=== PATIENT | male | born 1965 | race Caucasian/White ===

== ENCOUNTER 2024-05-12 15:10 | Emergency (ER) | payer OTHER, SELFPAY ==
--- NOTE | ~2024-05-12 | CT_ITS ---
CLINICAL HISTORY: right eye deviation CT angiography head with contrast (with noncontrast head CT). With MIP MPR Postprocessing. Comparison: None available Findings: No acute intracranial hemorrhage. No midline shift or hydrocephalus. Weller matter-white matter differentiation is adequate and with question mild white matter pathology. Mild volume loss is generalized and greater than expected for age. Mucosal thickening paranasal sinuses with near-complete opacification of the remodeled left maxillary sinus. Previous paranasal sinus procedure changes suggested. Imaged mastoid air cells are well aerated. No acute skull fracture. No opacified proximal intracranial arterial aneurysm to account for the reported ocular abnormality. Least mild bilateral myopia with bilateral esotropia at the time of the imaging. Left-sided periorbital soft tissue swelling suggested. No ICA or M1 occlusion. Calcifications include bilateral carotid siphons. Anterior communicating artery is patent. Proximal ACAs and proximal MCAs are otherwise unremarkable technique. The left vertebral artery is dominant. Right vertebral terminates in the right PICA. The basilar artery is patent without stenosis. Proximal photo specialist are unremarkable for technique and venous contamination. IMPRESSION: 1. No ICA or M1 occlusion. 2. The basilar artery is patent. 3. Esotropia and myopia of the imaged orbits. This document has been electronically signed by: Casimiro Costello MD on 05/12/2024 20:57:15
[2024-05-12 15:45] VITALS: BP 157/84; PULSE 92; RESP 18; TEMP 36.3; O2SAT 97; BMI 46.0
--- NOTE | 2024-05-12 16:06 | ECG_ITS ---
Test Reason : PAIN Blood Pressure : */* mmHG Vent. Rate : 87 BPM Atrial Rate : 87 BPM P-R Int : 180 ms QRS Dur : 94 ms QT Int : 354 ms P-R-T Axes : 2 18 2 degrees QTcB Int : 425 ms Normal sinus rhythm with sinus arrhythmia Normal ECG When compared with ECG of 18-Oct-2017 20:08, No significant change was found Referred By: Barry Wagner Electronically Signed By: ARLENE BROOKE MD
--- NOTE | 2024-05-12 16:06 | ED.GENADULT ---
HPI - General Adult General Chief complaint: Eye Problems Stated complaint: Right eye pain/turning inward sent from office Time Seen by Provider: 05/12/24 19:47 Source: patient, RN notes reviewed and old records reviewed Mode of arrival: ambulatory History of Present Illness ED Provider: Erin Corrales PA-C HPI narrative: 59-year-old male with a past medical history of HTN, obesity, presenting to ED with complaints of right eye deviation and blurry vision x10 days. Admits noted his vision was off 10 days ago, was evaluated at urgent care and prescribed antibiotics, states symptoms worsened and was evaluated by creative services coordinator today who recommended patient follow-up with PCP for brain MRI to rule out CVA, due to concerns of CN 6 palsy. Patient reports double slash blurry vision. Denies other complaints including headache, vision loss, head trauma, neck/back pain, CP/SOB, numbness, tingling, weakness, speech difficulty. Denies anticoagulation use. Related Data Allergies Allergy/AdvReac Type Severity Reaction Status Date / Time No Known Allergies Allergy Verified 05/12/24 15:50 [No Known Allergies*] Review of Systems Review of Systems: Yes all other systems are reviewed and are negative Constitutional: Constitutional: Reports as per HPI Neurologic: Denies Abnormal speech present PMFSH Past Medical History Attestation statement: The following information was validated with the patient. Source: old records reviewed Social History Social History Advance Directives: No Advance Directives Information Provided: No Do you have a plan to hurt others: No Plan Physical Exam ED Vital Signs: Vital Signs - 24 hr 05/12/24 15:45 05/12/24 20:28 Temperature 97.4 F 98.5 F Pulse Rate 92 78 Respiratory Rate 18 20 Blood Pressure 157/84 H 129/72 Pulse Oximetry 97 96 Oxygen Delivery Method Room Air Room Air BMI result Body Mass Index 46.0 Const General: cooperative, healthy appearing and no acute distress Orientation/consciousness: patient oriented x3 Limitations: no limitations HENMT Head: Yes normal to inspection and Yes atraumatic Ears: hearing grossly normal bilaterally General nose exam: Normal external nose present Face and sinus: Yes normal facial exam Mouth: Normal oral and palatal mucosa present and no drooling Throat: Yes posterior oropharynx normal, Yes uvula midline, No peritonsillar mass and No uvula laterally displaced Eyes Other: + medial deviation of right eye General: appearance normal, both eyes and all related structures Alignment and Position: alignment normal Eyelids: Yes eyelids normal Conjunctivae: conjunctivae normal Pupils: Equal, round and reactive pupils present EOM: EOMs intact bilaterally Direct Ophthalmoscopy: normal light reflex and no photophobia Neck Neck: Yes normal visual inspection and Yes no meningeal signs Resp Effort & Inspection: normal respiratory effort and no respiratory distress Cardio Rate: regular rate Heart sounds: S1 normal heart sound present and S2 normal heart sound present GI Inspection: Yes normal to inspection Palpation (GI): Soft to palpation, nontender, no guarding and not rigid Skin Rashes: no rashes Wounds: no wounds Neuro General: patient oriented x3, gait normal, tone normal, moves all extremities, no meningeal signs, no focal motor deficits and CN's II-XI intact bilaterally Cranial nerves: Yes CN's II-XII intact bilaterally and Yes Equal, round and reactive pupils present Cognition (Neuro): normal cognition Speech: No Abnormal speech present Gait exam (Neuro): Normal gait present Motor exam (neuro): 5/5 motor strength present throughout and no tremor noted Extrem General: Yes normal to inspection Course Course Course Narrative: RME, this is a rapid medical exam performed by [place] Wagner please refer to primary provider for complete H&P- 59-year-old male with past medical history significant for hypertension and obesity presents for evaluation of right eye deviation. He reports he started to have minor visual changes 10 days ago and was seen at urgent care. He was diagnosed with sinusitis. He now has medial deviation of the right eye. He complains of double vision.. His symptoms have been progressively worsening over the last 10 days. He saw his creative services coordinator today who recommended he come to the ER for ?MRI of the brain and orbits. ? The patient has no other signs or symptoms and no other objective findings with the exception of the medial deviation of the right eye. Plan for labs, we will discuss with Neurology -2110--labs reassuring CT angio head IMPRESSION: 1. No ICA or M1 occlusion. 2. The basilar artery is patent. 3. Esotropia and myopia of the imaged orbits. > recommended close follow-up with PCP for further imaging including MRI and carotid ultrasound. Should also follow up again with ophthalmology - Results discussed with patient including worrisome signs and symptoms and strict return precautions, and when to return to the emergency department. They verbalized understanding and feel safe for discharge at this time. Reevaluation(s) Reevaluation #1: Discussed with Dr. Cash, he recommends CT angiography of the brain only to evaluate for aneurysm. He states there is no immediate indication for MRI of the brain, CT angiography of the neck. CT angiography of the brain was ordered Time: 17:03 Medications Administered Discontinued Medications Generic Name Dose Route Start Last Admin Trade Name Miguel PRN Reason Stop Dose Admin Iohexol 100 ml 05/12/24 20:16 05/12/24 20:16 Iohexol 350 Mg/Ml 100 Ml Infus..Btl IV 05/12/24 20:17 70 ml ONCE ONE Administration Medical Decision Making Medical Decision Making MDM Narrative: 59-year-old male with a past medical history of HTN, obesity, presenting to ED with complaints of right eye deviation and blurry vision x 10 days. On exam vital signs stable, NAD, nontoxic appearing, exam notable for rightward deviation of eye (Esotropia), no other focal neuro deficits. Ambulating with steady gait. Concern for subacute CVA vs cranial nerve palsy vs aneurysm or mass. Low suspicion for Espino's palsy, trauma, ICH or TIA. No evidence of globe rupture or acute infectious process. TNK not indicated Case was discussed with Neurology by MATT Boyle ([facility] provider) who recommended CT angiography of the brain only. Plan: Labs, VA, CTA brain Please refer to course for remaining clinical decision making, interpretation of labs/imaging results, and discussions with consultants and/or family members. Differential Diagnosis Differential Diagnoses: The differential diagnosis associated with the presentation includes As above Admission/Observation Consideration of admission/observation: Escalation of care including admission/observation considered Consult Healthcare Provider Management of the patient was discussed with: Surgical Supply Assistant (neurology) Lab Data [facility] Lab Attestation statement: I reviewed the patient's lab results. 05/12/24 16:14 05/12/24 16:14 Labs: Lab Results 05/12/24 Range/Units 16:14 WBC 9.2 (4.8-10.8) X10*3/uL RBC 5.05 (4.60-5.80) X10*6/uL Hgb 15.1 (14.0-18.0) g/dl Hct 42.0 (42.0-52.0) % MCV 83.2 (80.0-98.0) fL MCH 29.9 (27.0-33.0) pg MCHC 36.0 (31.0-36.0) g/dl RDW 13.2 (11.0-16.0) % Plt Count 215 (160-400) X10*3/uL MPV 8.3 L (9.4-12.4) fL Immature Gran % (Auto) 0.2 (0.0-0.4) % Neut % (Auto) 58.0 (45-73) % Lymph % (Auto) 31.4 (20-40) % [place] % (Auto) 8.9 (2-11) % Eos % (Auto) 1.1 (0-4) % Baso % (Auto) 0.4 (0-2) % Lymph # (Auto) 2.9 (1.2-4.9) X10*3/uL [place] # (Auto) 0.8 (0.1-1.2) X10*3/uL Eos # (Auto) 0.1 (0.0-0.4) X10*3/uL Baso # (Auto) 0.0 (0.0-0.2) X10*3/uL Abs Immat Gran (auto) 0.02 (0.00-0.03) X10*3/uL Absolute Neuts (auto) 5.3 (2.0-8.3) x10*3/uL Absolute Nucleated RBC 0.000 (0.0-0.012) X10*3/uL Nucleated RBC % (auto) 0.0 (0.0-0.2) /100WBC PT 13.9 H (10.9-12.4) SEC INR 1.2 H (0.9-1.1) Sodium 141 (135-145) mmol/L Potassium 3.6 (3.3-5.1) mmol/L Chloride 108 (96-108) mmol/L Carbon Dioxide 28 (22-29) mmol/L Anion Gap 9 L (12-20) BUN 13 (9-16) mg/dL Creatinine 0.92 (0.5-1.4) mg/dL Estim Creat Clear Calc 112.7 Estimated GFR > 60 Random Glucose 107 (60-115) mg/dL Calcium 9.5 (8.4-10.2) mg/dL Magnesium 2.1 (1.6-2.6) mg/dL Total Bilirubin 1.2 H (0.0-1.0) mg/dL AST 50 H (5-37) U/L ALT 90 H (0-40) U/L Alkaline Phosphatase 59 (39-117) U/L Total Protein 7.6 (6.5-8.0) g/dL Albumin 4.4 (3.5-5.0) g/dL Lipase 14 (8-78) U/L Radiology Impression Discussion of test interpretation with radiology: I have reviewed the radiologist's reading. External Record Review External record reviewed: Inpatient record, Office record, Outpatient record, Prior outpatient labs, Prior outpatient radiology, Primary care record and Outside ED record Tests considered The following testing was considered but not selected: As above Prescription Management I considered prescription management with: Other Chronic Conditions Patient?s care impacted by: Hypertension Social Determinants Patient?s care significantly limited by Social Determinants of Health including: Other Social Determinant of Health Discharge Plan Discharge Clinical Impression: Esotropia of right eye, Myopia Patient Disposition: Home, Self-Care Instructions: Strabismus in Adults (ED) Additional Instructions: Your CT scan shows esotropia and myopia of your orbits Your blood work is otherwise reassuring You need to follow-up with your primary care doctor, Ophthalmology, and Neurology. If her symptoms persist or worsen, you develop weakness, headache, vision change or loss return to the emergency department immediately Call tomorrow to make an appointment Dr. Harjit Lawrence MD [phone] [place] [address], [phone] Referrals: [facility] [Provider Group] Ganga Carroll III, MD [Primary Care Provider] - Print Language: Palestinian
[2024-05-12 16:18] LABS: MANUAL DIFF FLAG NO
[2024-05-12 16:19] LABS: Basophils Percent Auto 0.4 % (0-2); Eosinophils Absolute Auto 0.1 X10*3/uL (0.0-0.4); Eosinophils Percent Auto 1.1 % (0-4); Hemoglobin 15.1 g/dl (14.0-18.0); Imm Gran Abs Auto 0.02 X10*3/uL (0.00-0.03); Imm Gran Pct Auto 0.2 % (0.0-0.4); Lymphocytes Absolute Auto 2.9 X10*3/uL (1.2-4.9); Lymphocytes Percent Auto 31.4 % (20-40); Mean Corpuscular Hemoglobin 29.9 pg (27.0-33.0); Mean Corpuscular Volume 83.2 fL (80.0-98.0); Mean Platelet Volume 8.3 fL (9.4-12.4); Monocytes Absolute Auto 0.8 X10*3/uL (0.1-1.2); Monocytes Percent Auto 8.9 % (2-11); Neutrophils Absolute Auto 5.3 x10*3/uL (2.0-8.3); Platelet Count 215 X10*3/uL (160-400); Red Blood Count 5.05 X10*6/uL (4.60-5.80); Red Cell Distribution Width 13.2 % (11.0-16.0); White Blood Count 9.2 X10*3/uL (4.8-10.8)
[2024-05-12 16:27] LABS: INTERNATIONAL NORM RATIO 1.2 (0.9-1.1); Prothrombin Time 13.9 SEC (10.9-12.4)
[2024-05-12 16:38] LABS: Alanine Aminotransferase 90 U/L (0-40); Albumin Level 4.4 g/dL (3.5-5.0); Alkaline Phosphatase 59 U/L (39-117); Anion Gap 9 (12-20); Aspartate Amino Transferase 50 U/L (5-37); Bilirubin Total 1.2 mg/dL (0.0-1.0); Blood Urea Nitrogen 13 mg/dL (9-16); Calcium 9.5 mg/dL (8.4-10.2); Carbon Dioxide 28 mmol/L (22-29); Chloride 108 mmol/L (96-108); Creatinine Clr Calc Pharmacy 112.7; Estimated Glomerular Filt Rate > 60; Glucose Random 107 mg/dL (60-115); Lipase 14 U/L (8-78); Potassium 3.6 mmol/L (3.3-5.1); Sodium 141 mmol/L (135-145); Total Protein 7.6 g/dL (6.5-8.0)
--- OUTSIDE RECORDS SUMMARY | 2024-05-12 20:00 | XMS_ITS | Continuity of Care Document ---
Author Organization [place] - [facility], [facility] Address [address] [place] [address] Care Team Providers Care Robotics Systems Engineer Name Role Phone CHENCHO GILES Primary Care Provider Assessment No assessment recorded. Plan of Treatment Reminders Order Date Submit Date Provider Last Modified By Organization Details Last Modified Time Details Appointments None recorded. Lab None recorded. Referral None recorded. Procedures None recorded. Surgeries None recorded. Imaging CT, maxillofaci al, w/wo contrast - diplopia and ?fungal sinusitis with contrast 2024 025 [facility], [address] , [facility] [address], [place], [address], 5 09:15:21 Medication Orders Ciprodex 0.3 %-0.1 % ear drops,suspe nsion 2024 025 [facility], [address] [place] [address], [id number], 5 15:44:39 amoxicillin 875 mg-potassiu m clavulanate 125 mg tablet 2024 025 [facility], [address] [place] [address], [id number], 5 15:44:40 Patient TargetsNo targets recorded. Patient Instructions Encounter Date Encounter Id Patient Instructions Last Modified By Organization Details Last Modified Time 05/10/2024 [id number] Patient with history of sleep apnea, nasal polyps allergic rhinitis who had recent ear infection. He is also noted some pressure behind his eyes and some difficulty with his vision. There is some relative exophthalmos left compared to right with a little bit of ptosis of the right eye. Endoscopically I see some polypoid degeneration of the left ethmoid cavity and some purulent discharge in the left maxillary sinus. I did not see any polyps in the sphenoid recess. At this point he also has a right ear infection with granulation tissue. I have suggested topical drops for the ear, oral antibiotics for the sinusitis and consistent use of fluticasone nasal spray. He will see ophthalmology in 2 days and I will put an order in for a CT scan of the sinuses with contrast hong Not available 05/10/2024 15:42:53 Reason for Referral None Reported. Problems Name Problem SNOMED Code Status Onset Date Resolution Date Notes Provider Name and Address Organization Details Recorded Time Chronic rhinitis 93222694 Active 2015 Chronic rhinitis; Note: Date Diagnosed : 12/07/2015 10:33 AM (J31.0) Not Available [facility] 4 02:31:31 Deviated nasal septum 033587536 Active 2015 Nasal septal deviation ; CMS Risk: moderate risk Dev iated nasal septum; Note: Date Diagnosed : 06/19/2015 11:20 AM (J34.2) ; Start Date : 6 Not Available [facility] 4 02:31:38 Postopera tive follow-up visit Active 2015 Post op; Note: Date Diagnosed : 07/23/2015 10:37 AM (V67.00) Not Available [facility] 4 02:31:47 Chronic sinusitis 22097192 Active 2015 Chronic sinusitis ; Note: Date Diagnosed : 07/23/2015 10:37 AM (473.9) Sinusit is (chronic) involving more than one sinus but not pansinusi tis; Note: Date Diagnosed : 06/19/2015 11:56 AM (J32.8) ; Start Date : 6 Not Available [facility] 4 02:31:30 Chronic maxillary sinusitis 79243582 Active 2015 Chronic maxillary sinusitis ; Note: Date Diagnosed : 08/01/2015 4:54 PM (J32.0) Not Available [facility] 4 02:31:46 Dyspnea 724924884 Active 2015 Shortness of breath; Note: Date Diagnosed : 12/07/2015 10:33 AM (R06.02) Not Available [facility] 4 02:31:28 Allergic rhinitis 69001291 Active 2015 Other allergic rhinitis; Note: Date Diagnosed : 08/29/2015 4:01 PM (J30.89) Not Available [facility] 4 02:31:30 Obstructi ve sleep apnea syndrome 40725098 Active 2019 Obstructi ve sleep apnea (adult) (pediatri c); Note: Date Diagnosed : 05/13/2019 3:33 PM (G47.33) Not Available [facility] 4 02:31:40 Superfici al mycosis 138027558 Active 2015 Other specified superfici al mycoses; Note: Date Diagnosed : 08/01/2015 4:55 PM (B36.8) Not Available [facility] 4 02:31:37 Nasal congestio n 99136609 Active 2019 Nasal congestio n; Note: Date Diagnosed : 05/13/2019 3:33 PM (R09.81) Not Available [facility] 4 02:31:26 Acute serous otitis media of bilateral ears 12052561027 58247 Active 2019 Acute serous otitis media, bilateral ; Note: Date Diagnosed : 05/13/2019 3:38 PM (H65.03) Not Available [facility] 4 02:31:35 Hypertrop hy of nasal turbinate s 23444715 Active 2015 Nasal turbinate hypertrop hy; Location: bilateral CMS Risk: low risk Hyp ertrophy of nasal turbinate s; Note: Date Diagnosed : 07/19/2015 1:25 PM (J34.3) ; Start Date : 6 Not Available [facility] 4 02:31:28 Polyp of nasal cavity 115502823 Active 2015 Polyp of nasal cavity; Note: Date Diagnosed : 06/19/2015 11:20 AM (J33.0) Not Available [facility] 4 02:31:44 Acute suppurati ve otitis media 133191259 Active 2024 CLAUDE HERNÁNDEZ MD [address] [facility],[place] [address], [place], [address] , [facility] 5 15:44:05 Diplopia 15275060 Active 2024 CLAUDE HERNÁNDEZ MD [address] [facility],[place] [address], [facility] [place], [address] , [facility] 5 15:46:03 Problem Notes None recorded. Procedures Surgical History Date Name Laterality Status Provider Name and Address Organization Details Recorded Time JMSNasal/Sinus Endoscopy-PRIOR surgical cavities completed CLAUDE LOUIS MD [address] [place] [address],[place] [address], [place], [address], [facility] 05/10/2024 15:41:25 functional endoscopic sinus surgery completed CLAUDE LOUIS MD [address] [place] [address],[place] [address], [place], [address], [facility] 05/10/2024 15:35:13 Imaging Results None recorded. Procedure Notes None recorded. Medical Equipment None Reported. Medications Name Sig Start Date Stop Date Status Note LastModified by Organization Details LastModified Time losartan 50 mg tablet TAKE 1 TABLET BY MOUTH ONCE DAILY active Not Available Not Available No t Available dicloxaci llin 500 mg capsule 1 capsule by mouth 2015 active Medicati on ID: [id number] D uration Value: 10 Prescri bed By Name: JOSEPHINE Arauz nd Name: dicloxac illin Se nd Method: E-Prescr ibed Sub s Allowed: subs OK Medic ationGen ericName : dicloxac illin Not Available Not Available Not Available atorvasta tin 10 mg tablet TAKE 1 TABLET BY MOUTH ONCE DAILY active Not Available Not Available No t Available hydrocodo ne 5 mg-acetam inophen 325 mg tablet 1 tablet by mouth 2015 active Medicati on ID: [id number] D uration Value: 5 Prescri bed By Name: Reg Sorenson nd Name: hydrocod one-acet aminophe n Send Method: E-Prescr ibed Sub s Allowed: subs OK Medic ationGen ericName : hydrocod one-acet aminophe n Not Available Not Available Not Available prednison e 20 mg tablet 2019 active Medicati on ID: [id number] P rescribe d By Name: Reg Sorenson nd Name: predniso ne Send Method: E-Prescr ibed Sub s Allowed: subs OK Speci al Instruct ion: Take 3 tabs daily for 3 days then 2 tabs daily for 3 days then 1 tabs daily for 3 days then stop Med icationG enericNa me: predniso ne Not Available Not Available Not Available amlodipin e 10 mg tablet TAKE 1 TABLET BY MOUTH ONCE DAILY active Not Available Not Available No t Available doxycycli ne monohydra te 100 mg capsule 1 capsule by mouth twice a day 2019 active Medicati on ID: [id number] D uration Value: 10 Prescri bed By Name: Reg Sorenson nd Name: doxycycl ine monohydr ate Send Method: E-Prescr ibed Sub s Allowed: subs OK Medic ationGen ericName : doxycycl ine monohydr ate Not Available Not Available Not Available Ponaris nasal solution 1 ml into both nostrils 2015 active Medicati on ID: [id number] D uration Value: 30 Prescri bed By Name: Reg Sorenson nd Name: Ponaris Send Method: E-Prescr ibed Sub s Allowed: subs OK Speci al Instruct ion: use 1/2 dropper in each nostril BID... M edicatio nGeneric Name: Ponaris Not Available Not Available Not Available lisinopri l 10 mg tablet active Medicati on ID: [id number] D uration Value: 30 Brand Name: lisinopr il Send Method: E-Prescr ibed Sub s Allowed: subs OK Medic ationGen ericName : lisinopr il Not Available Not Available Not Available hydrochlo rothiazid e 25 mg tablet 05/13 completed Medicati on ID: [id number] D uration Value: 30 Brand Name: hydrochl orothiaz adam Send Method: E-Prescr ibed Sub s Allowed: subs OK Medic ationGen ericName : hydrochl orothiaz aadm Not Available Not Available Not Available diclofena c sodium 50 mg tablet,de layed release TAKE 1 TABLET BY MOUTH TWICE DAILY NEEDED FOR PAIN active Not Available Not Available No t Available fluticaso ne propionat e 50 mcg/actua tion nasal spray,lito pension 2 spray into both nostrils 2016 active Medicati on ID: [id number] D uration Value: 30 Prescri bed By Name: Reg Sorenson nd Name: fluticas one Send Method: E-Prescr ibed Sub s Allowed: subs OK Medic ationGen ericName : fluticas one Not Available Not Available Not Available amoxicill in 875 mg-potass ium clavulana te 125 mg tablet Take 1 tablet every 12 hours by oral route. 2024 active Not Available Not Available Not Avai lable cyclobenz aprine 5 mg tablet TAKE 1 TABLET BY MOUTH AT BEDTIME NEEDED FOR MUSCLE SPASM active Not Available Not Available No t Available Fish Oil 120 mg-180 mg capsule 2015 active Medicati on ID: [id number] B rand Name: Fish Oil Send Method: E-Prescr ibed Sub s Allowed: subs OK Medic ationGen ericName : Fish Oil Not Available Not Available Not Available Ciprodex 0.3 %-0.1 % ear drops,lito pension INSTILL 4 DROPS INTO AFFECTED EAR(S) BY OTIC ROUTE 2 TIMES PER DAY FOR 7 DAYS 2024 active Not Available Not Available Not Avai lable omeprazol e 20 mg tablet,de layed release 2015 active Medicati on ID: [id number] B rand Name: omeprazo le Send Method: E-Prescr ibed Sub s Allowed: subs OK Speci al Instruct ion: Take 1 tablet by mouth every day before breakfas t Medica tionGene ricName: omeprazo le Not Available Not Available Not Available cholecalc iferol (vitamin D3) 125 mcg/mL (5,000 unit/mL) oral drops 2017 active Medicati on ID: [id number] B rand Name: cholecal ciferol (vitamin D3) Send Method: E-Prescr ibed Sub s Allowed: subs OK Medic ationGen ericName : cholecal ciferol (vitamin D3) Not Available Not Available Not Available EpiPen 2-Sathish 0.3 mg/0.3 mL injection , auto-inje ctor 1 pen injector intramus cularly 2015 active Medicati on ID: [id number] D uration Value: 180 Prescri bed By Name: Claude hopkins M.D. Bra nd Name: EpiPen 2-Sathish Se nd Method: E-Prescr ibed Sub s Allowed: subs OK Medic ationGen ericName : EpiPen 2-Sathish Not Available Not Available Not Available Vitals Date Recorded Body height Body mass index (BMI) Body weight Provider Name and Address Organization Details Last Updated DateTime 05/10/2024 167.64 cm 46.3 kg/m2 989175.01 g Gabriel Gonzalez [place] - [facility] 05/10/2024 15:22:23 Social History None recorded. Functional Status None recorded. Mental Status None recorded. Family History Nothing Reported. Medical History Condition Response Nasal or Sinus Problems Y Allergies/Hayfever Y High Cholesterol Y Sleep Disorder Y Hypertension Y Nasal polyps Y Past Encounters Encounter ID Performer Location Encounter Start Date Encounter Closed Date Diagnosis/Indication Diagnosis SNOMED-CT Code Diagnosis ICD10 Code Diagnosis Note [id number] CLAUDE HERNÁNDEZ MD [facility] [address] [address] 05/10/2024 15:05:27 05/10/2024 15:47:24 Chronic sinusitis 12590869 J32.9 Acute supp urative otitis media 013314611 H66.009 Diplopia 02704599 H53.2 Health Concerns Section Related Observation LastModified by Organization Detai ls LastModified Time None Recorded Concern Status LastModified by Organization Details LastModified Time None Recorded Payers Encounter Date Sequence Insurance Name Policy Number Policy Carr Covered Member ID Carr Member ID Guarantor Name 05/10/2024 1 [facility] PLAN (MEDICAID HMO) [id number] Delfin Stratton [id number] Delfin Stratton Notes Date Note Type Note Provider Name and Address Organization Details Recorded Time 05/10/2024 text/html Patient with history of allergy, nasal polyps and obstructive sleep apnea. He underwent endoscopic surgery in 2016. Has not been seen for at least 4 years. Is been doing Flonase and has been doing reasonably well. He notes recently he had some blockage and a sensation of discharge from the right ear. Last week he noticed some double vision in primary and upward gaze. He is scheduled for ophthalmology evaluation later this week. He continues on CPAP. He notes some pressure in his head and pain behind left eye CLAUDE LOUIS MD [address] [place] [address], [place], [address], [facility] - [facility] 05/10/2024 15:46:19
[2024-05-12 20:14] LABS: Magnesium 2.1 mg/dL (1.6-2.6)
[2024-05-12] MEDS: iohexoL 350 MG/ML 100 ML INFUS..BTL IV (20:16)
[2024-05-12 20:28] VITALS: BP 129/72; PULSE 78; RESP 20; TEMP 36.9; O2SAT 96
[2024-05-12 21:51] LABS: TSH reflex Free T4 0.61 uIU/mL (0.32-4.0)
[2024-05-12 23:04] VITALS: BP 129/72; PULSE 78; RESP 20; TEMP 36.9; O2SAT 96
== END 2024-05-12 23:04 | disposition home or self-care (01) ==
PROVIDERS: Physician Assistant; Emergency Provider Emergency Medicine Emergency Medical Services; PCP Internal Medicine
DX: H50.00 Unspecified esotropia (principal); H52.11 Myopia, right eye; H53.8 Other visual disturbances
CPT/HCPCS: 36415; 70496; 80053; 83690; 83735; 84443; 85025; 85610; 93005; 99284; Q9967

== ENCOUNTER → 2024-05-12 16:06 | Outpatient (BNV) | payer OTHER, SELFPAY | PROVIDERS: Emergency Provider Emergency Medicine Emergency Medical Services; PCP Internal Medicine; Visit Provider Internal Medicine Cardiovascular Disease | DX: H57.11 Ocular pain, right eye (principal) | CPT/HCPCS: 93010 ==

== ENCOUNTER → 2024-05-12 16:58 | Outpatient (BNV) | payer OTHER, SELFPAY | PROVIDERS: Emergency Provider Emergency Medicine Emergency Medical Services; PCP Internal Medicine; Visit Provider Radiology Neuroradiology | DX: H50.00 Unspecified esotropia (principal); H52.10 Myopia, unspecified eye | CPT/HCPCS: 70496 ==

== ENCOUNTER 2025-01-15 14:43 | Emergency (ER) | payer OTHER, SELFPAY ==
--- NOTE | 2025-01-15 15:04 | ED.EYEPROB ---
HPI - Eye Problem General Chief complaint: Eye Problems Stated complaint: blurred vision? referred to [facility] Time Seen by Provider: 01/15/25 17:44 Source: patient Mode of arrival: ambulatory Limitations: no limitations History of Present Illness ED Provider: ALEX PIZARRO PA-C HPI Narrative: 59-year-old male with past medical history significant for hypertension presents to the ED today for evaluation of increased floaters to right eye since yesterday. Patient states he was working on his girlfriend's car, went to sit down to talk to her and noticed increased floaters to his right eye. He states this was at approximately 2:00 p.m. yesterday. He reports floaters to bilateral eyes at baseline however they were more prominent to his right eye yesterday. States the floaters move into the center and cause him to have blurred vision in his right eye. These are becoming more frequent. He denies any associated symptoms including headache, jaw claudication, vision loss, eye pain. He wears glasses, does not wear contacts. He does not believe he got anything into his eye while working on the car as he was standing above the car, looking down. He regularly follows with his neuroophthalmologist in [place] due to history of left eye palsy which has since resolved. Reports following up with him in August of this year (6 mo ago) with eye exam at his baseline. Related Data Allergies Allergy/AdvReac Type Severity Reaction Status Date / Time No Known Allergies (No Known Allergy Verified 01/15/25 15:08 Allergies*) Review of Systems Review of Systems: Yes all other systems are reviewed and are negative PMFSH Past Medical History Attestation statement: The following information was validated with the patient. Source: old records reviewed and nursing notes reviewed Social History Social History Smoked in Last 30 Days: No Use of substances other than those prescribed or required for medical reasons: No Advance Directives: No Advance Directives Information Provided: No Do you have a plan to hurt others: No Plan Physical Exam Vital Signs: Vital Signs: Last Vital Signs Temp 98.4 F 01/15/25 19:10 Pulse 83 01/15/25 19:10 Resp 16 01/15/25 19:10 BP 147/78 H 01/15/25 19:10 Pulse Ox 96 01/15/25 19:10 O2 Del Method Room Air 01/15/25 19:10 BMI result Body Mass Index 47.5 hypertensive, vitals are otherwise wnl General: Well appearing, in no acute distress. Skin: Warm, dry, intact. No rashes or lesions. Head: Normocephalic, atraumatic. EENT: Hearing is intact b/l. Moist mucous membranes.?No periorbital swelling. No enophthalmous or exopthalmous. EOMs intact without pain or entrapment. PERRLA. No photophobia. No obvious foreign body or abrasion. No conjunctival injection or chemosis. No hazy cornea. Visual acuity 20/100 bilaterally, uncorrected. 20/30 bilaterally corrected. IOP OD 19, IOP OS 20. No FB noted on eyelid eversion. On tetracaine exam, no reuptake to suggest abrasion or fb. No ulceration. No dendritic lesions. Neck: Supple without LAD Cardiac: Chest wall symmetric. RRR Lungs: Normal respiratory effort without accessory muscle use. CTA bilaterally. Back: No midline spinous or paraspinal tenderness. No step off deformity. Ext: Upper and lower extremities atraumatic, without tenderness, deformity, swelling or erythema Neuro: AOx3. Normal speech. NIH 0. Ambulating with steady gait. 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 Deferred additional HPI, ROS, PE to primary provider. 59 yo male with history of HTN here with complaints of right eye blurry vision since yesterday. No flashing lights. No pain, headache, vomiting. Has an opthamologist in [place]. Wears glasses. Will need visual acuity and exam. VSS Reevaluation(s) Reevaluation #1: Tetracaine/fluorescein exam unremarkable. No reuptake to suggest foreign body, abrasion. He has normal intra-ocular pressures -acute angle closure glaucoma unlikely. I did perform a bedside ultrasound and do not appreciate any retinal detachment or vitreous hemorrhage. I am not concerned about stroke or ocular infarction. I do not feel as though emergent imaging is warranted at this time. I feel outpatient follow up with his neuro dragline operator is reasonable. I advised him to contact their office tomorrow morning to schedule follow up. Patient has remained stable throughout ED visit today. Discussed worrisome signs and symptoms and when to return to the ED. All questions answered at this time. Patient is agreeable with disposition and stable for discharge. Medications Administered Discontinued Medications Generic Name Dose Route Start Last Admin Trade Name Miguel PRN Reason Stop Dose Admin Fluorescein Sodium 1 strip 01/15/25 18:01 01/15/25 18:38 Fluorescein Sodium Strip EYE-RIGHT 01/15/25 18:02 1 strip ONCE ONE Administration Tetracaine HCl 1 drop 01/15/25 18:01 01/15/25 18:38 Tetracaine Hcl/Pf 0.5% Oph Laura 4 Ml Drops EYE-RIGHT 01/15/25 18:02 1 drop ONCE ONE Administration Medical Decision Making Medical Decision Making MDM Narrative: 59-year-old male with past medical history significant for hypertension presents to the ED today for evaluation of increased floaters to right eye since yesterday. Patient is hypertensive, vitals are otherwise wnl. he is well appearing, in NAD. no focal neuro deficits. On exam, no periorbital swelling. No enophthalmous or exopthalmous. EOMs intact without pain or entrapment. PERRLA. No photophobia. No obvious foreign body or abrasion. No conjunctival injection or chemosis. No hazy cornea. Visual acuity 20/100 bilaterally, uncorrected. 20/30 bilaterally corrected. IOP OD 19, IOP OS 20. No FB noted on eyelid eversion. On tetracaine exam, no reuptake to suggest abrasion or fb. No ulceration. No dendritic lesions. Differential diagnosis includes corneal abrasion, corneal foreign body, viral vs bacterial conjunctivitis, allergic conjunctivitis. Unlikely preseptal or orbital cellulitis, acute angle closure glaucoma, iritis, keratitis, scleritis, uveitis, herpes ophthalmicus. Plan for tetracaine/fluorescein exam, IOP, visual acuity, bedside ultrasound, disposition. Differential Diagnosis Differential Diagnoses: The differential diagnosis associated with the presentation includes as above. Admission/Observation not indicated. External Record Review External record reviewed: Inpatient record Social Determinants Patient?s care significantly limited by Social Determinants of Health including: Other Social Determinant of Health Critical Care Time Critical Care Time Critical Care Time: No Discharge Plan Discharge Clinical Impression: Visual floaters Patient Disposition: Home, Self-Care Instructions: Eye (Visual) Floaters (ED) Additional Instructions: You were evaluated in the ED today for floaters, more prominent in your right eye. Your tetracaine/fluorescein exam is reassuring. Your eye pressures are normal. The ultrasound of your eyes did not reveal any acute abnormalities. There is no indication for further imaging at this time, on an emergent basis. Please follow up with your neuro dragline operator tomorrow morning. Return with any new or worsening symptoms. In the case of an emergency call 911. Referrals: Ganga Carroll III, MD [Primary Care Provider, Medical] Interventions: ED Discharge Assessment Last Done: 01/15/25 19:10 Discharge Date/Time: 01/15/25 19:11 Print Language: Spanish
[2025-01-15 15:05] VITALS: BP 168/79; PULSE 95; RESP 15; TEMP 36.8; O2SAT 95; BMI 47.5
--- OUTSIDE RECORDS SUMMARY | 2025-01-15 15:33 | XMS_ITS | Clinical Summary ---
Author Organization Patient Business Ser [facility] Address [address] [place] [address] Care Team Providers Care Deburr Technician Name Role Phone Ganga Carroll MD Primary Care Provider [phone] Allergies Active Allergy Reactions Criticality Noted Date Comments Ciprofloxacin Hcl 03/04/2024 Pollen Extracts 03/02/2017 Medications cholecalcifero l (VITAMIN D-3) 25 mcg (1,000 unit) capsule Take by mouth. Activ e fluticasone propionate (FLONASE) 50 mcg/actuation nasal spray Administer 2 sprays into affected nostril(s). 12/19/19 22 Active omeprazole OTC (PriLOSEC OTC) 20 mg EC tablet Take 1 tablet (20 mg total) by mouth 1 (one) time each day. 06/27/19 23 Active EPINEPHrine (EpiPen 2-Sathish) 0.3 mg/0.3 mL injection 1 pen injector intramuscularly 02/29/20 16 Active atorvastatin (LIPITOR) 10 mg tablet Take 1 tablet (10 mg total) by mouth at bedtime. 90 tablet 1 06/30/19 25 Active amLODIPine (NORVASC) 10 mg tablet Take 1 tablet (10 mg total) by mouth 1 (one) time each day. 90 tablet 1 06/30/19 25 Active albuterol HFA (Ventolin HFA) 90 mcg/actuation inhaler Inhale 2 puffs by mouth every 4 (four) hours if needed for wheezing or shortness of breath. 8 g 07/13/19 25 026 Active losartan (COZAAR) 50 mg tablet Take 1 tablet by mouth once daily 90 tablet 11/03/19 25 Active diclofenac (Voltaren Arthritis Pain) 1 % topical gel Apply 4 g topically 2 (two) times a day. 240 g 1 12/14/19 25 025 Active Active Problems Problem Noted Date Diagnosed Date CN palsy, left 05/10/2024 Overview (06/09/2024): diplopia Assessment & Plan (06/09/2024 3:25 PM EST): Patient woke up on a Thursday morning and noticed his vision was weird about 1 month ago, his vision continued to worsen over the next few days and he was getting double vision, worse by the second week. It has seemed to get a little bit better, he has been taking videos of his eye movements and notices he now can look a little farther to the left lateral with the left eye, originally the eye did not move laterally at all per patient. He denies any recent flu or viral symptoms, fevers, rash, however little before this started he was experiencing right ear infection, left sinus infection, saw ENT Dr. Whalen about 1 month ago, was started on a second round of amoxicillin. Was not prescribed oral steroids from urgent care or ENT. He has chronic sinus issues with surgery for deviated septum, polyps, fungal infections, had a regimen in the past for nasal saline irrigation. He saw a neuro- supervisor order takers last week, has follow-up June 22, was told the cranial nerve palsy was likely to resolve with time. Otherwise he is feeling well, infection resolved, will get some pressure behind the eyes, gets tired by the end of the day. 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 Patient had brain MRI with and without contrast May 25, 2024 [facility], there was incidental finding of small approximately 9 mm left temporal extra-axial mass with dural tails, likely meningioma (measurements on brain MRI 5 mm, orbit/face/neck MRI measured 9 mm). My measurement was closer to the 9 mm as well. No surrounding edema or mass effect. I reviewed the MRI imaging with patient in detail on the computer. They did not find any intracranial abnormalities otherwise, normal MRI appearance of the orbits and cavernous sinuses, and brainstem. Dr. West reviewed MRI images as well. Mr. Stratton has incidental finding of small left temporal meningioma on MRI, seems to have resolving cranial nerve palsy, unknown etiology. This likely will continue to improve with time. In terms of the small meningioma, Dr. West states he does not need follow-up, however we could do repeat MRI in 2-3 years to rule out any growth of the meningioma, which he would prefer. All questions answered, I asked him to call with any concerns or questions. Acute left-sided low back pain with left-sided s ciatica 03/04/2024 Assessment & Plan (03/04/2024 3:53 PM EST): Mr Stratton describes left leg pain with numbness and weakness in the ankle and foot. The pain has been going on for about 3 weeks but the dorsiflexion weakness has been going on for about 2 weeks. He is taking ibuprofen 600 mg twice daily without any relief. He had some x-rays which showed a chronic compression fracture at T11 and some loss of disc height at L5-S1. Given the left ankle weakness, I think we need to get an MRI of the lumbar spine. He says if there is surgery to offer he would certainly take it. I will order MRI and he will follow-up afterward. Leg swelling 02/19/2024 Bilateral carpal tunnel syndrome 11/17/2023 Coronary artery disease invo lving [place]uy[place] coronary artery of [place] heart without angina pectoris 06/19/2022 Cholelithiases 06/19/2021 Overview (02/19/2024): Seen on external CT Abdomen 06/19/21 Inguinal hernia 06/19/2021 Overview (02/19/2024): B/L: Seen on external CT of abdomen 06-19-21 Chronic prostatitis 06/06/2021 Overview (02/19/2024): Follows with [facility] Hydrocele 06/06/2021 Spermatocele 06/06/2021 Obstructive sleep apnea 03/30/2017 Overview (02/19/2024): [facility] Home Polysomnogram: Date 03/25/2017; AHI 49, Unclassified apneas 0; Obstructive apneas 76; Central apneas 1; Mixed apneas 0; hypopneas 191; average oxygen saturation 93% (lowest 81% with saturations <88% for 5% or more of study) Lumbar disc disease with radiculopathy 7 Assessment & Plan (06/09/2024 3:06 PM EST): Patient has been seen in the office a few months ago for back and left leg pain, on imaging has chronic compression fracture at T11 and some loss of disc height at L5-S1. He feels his left leg symptoms are improving, still gets occasional cramping/spasm in the left foot or posterior thigh, no longer feels weak in his left leg. He has been putting a lidocaine cream on the leg when needed, doing conservative treatments, will call if things worsen for follow-up. Deviated nasal septum 07/23/2015 Overview (06/09/2024): Nasal septal deviation; CMS Risk: moderate risk Deviated nasal septum; Note: Date Diagnosed: 06/19/2015 11:20 AM (J34.2) ; Start Date : 06/19/2015 Chronic maxillary sinusitis 07/23/2015 Overview (06/09/2024): Chronic maxillary sinusitis; Note: Date Diagnosed: 08/01/2015 4:54 PM (J32.0) GERD (gastroesophageal reflux disease) 4 Allergic rhinitis 08/18/2011 HTN (hypertension) 08/18/2011 Encounters Date Type Department Care Team Description 12/13/2024 3:15 PM EDT Consult Orthopedic Surgery - [place] [address] [phone] Jaime Guerrero, DPM Metatarsalgia of both feet (Primary Dx); Pain in both feet; Neuritis from Last 3 Months Immunizations Immunization Administration Dates Next Due Tdap Tetanus diptheria acell ular pertussis (Boostrix; Adacel) 7yo and older 01/17/2021,05/15/2010 Surgical History Surgery Date Site/Laterality Comments TONSILLECTOMY 1973 Medical History Medical History Date Comments HTN (hypertension) 08/18/2011 Allergic rhinitis 08/18/2011 GERD (gastroesophageal reflux disease) 01/23/2014 Lumbar disc disease with radiculopathy 07/08/2016 Palpitation Nasal polyps Deviated septum Family History Medical History Relation Name Comments Heart attack Brother 1 Other: Kidney Cancer Brother 2 Heart attack Father HTN, COPD Stroke Maternal Grandmother Hypertension Mother Diverticulitis Other: bile duct tumor Mother Hypertension Sister 1 Hypertension Sister 2 Hypertension Sister 3 Relation Name Status Comments Brother 1 (Age 46years) suddiamond n cardiac arrest while in [facility] Brother 2 Father Maternal Grandfather Maternal Grandmother Mother Paternal Grandfather Paternal Grandmother Sister 1 Alive Sister 2 Alive Sister 3 Alive Social History Tobacco Use Types Packs/Day Years Used Date Smoking Tobacco: Former Smokeless Tobacco: Never Tobacco Cessation:Counseling Given: Not Answered Alcohol Use Standard Drinks/Week Comments Yes 0 (1 standard drink = 0.6 oz pur e alcohol) Housing Instability Answer Date Recorde d Are you worried that in the next 2 months you may not have stable housing? Patient declined 08/17/2024 Food Access & Nutrition Answer Date Rec orded Do you have access to a vari ety of food including fruits and vegetables? Patient declined 08/17/2024 Health Literacy Answer Date Recorded How often do you need to hav e someone help you when you read instructions, pamphlets, or other written material from your doctor or pharmacy? Patient declined 08/17/2024 Caregiver: How often do you need to have someone help you when you read instructions, pamphlets, or other written material from your doctor or pharmacy? Not on file 025 Financial Risk Answer Date Recorded How hard is it for you to pa y for the very basics like food, housing, medical care, and air conditioning / heating? Patient declined 08/17/2024 Transportation Answer Date Recorded Has the lack of transportati on kept you from meetings, work, or from getting things needed for daily living? Patient declined 08/17/2024 Has the lack of transportati on kept you from medical appointments or from getting medications? Patient declined 08/17/2024 Social Isolation Answer Date Recorded How often do you feel lonely or isolated from those around you? Patient declined 08/17/2024 Food Risk Answer Date Recorded Within the past 12 months we worried whether our food would run out before we got money to buy more. Patient declined 025 Within the past 12 months th e food we bought just didn't last and we didn't have money to get more. Patient declined 07/21 Dependent Care Answer Date Recorded Do you need help finding or paying for care for your loved ones. For example, children's service supervisor or elderly care for an older adult? Patient declined 08/17/2024 Education Answer Date Recorded Do you think completing more education or training, like finishing a GED, going to college, or learning a trade, would be helpful for you? Patient declined 08/17/2024 Employment and Income Answer Date Recor ded During the last four weeks, have you been actively looking for work? Patient declined 08/17/2024 Living Situation Answer Date Recorded What is your living situation? Unrecognized valu e 08/17/2024 Sex and Gender Information Value Date Recorded Sex Assigned at Not on file Legal Sex Male 4:50 PM EDT Gender Identity Not on file Sexual Orientation Not on file Obstetrics History Last Filed Vital Signs Vital Sign Reading Time Taken Comments Blood Pressure 135/67 09/20/2024 3:37 PM EDT Pulse 86 09/20/2024 3:37 PM EDT Temperature 36.9 C (98.5 F) 09/20/2024 3:37 PM EDT Respiratory Rate 18 09/20/2024 3:37 PM EDT Oxygen Saturation 96% 06/29/2024 4:04 PM EDT Inhaled Oxygen Concentration - - Weight 137 kg (301 lb) 09/20/2024 3:37 PM EDT Height 170.2 cm (5' 7 ) 09/20/2024 3:37 PM EDT Body Mass Index 47.14 09/20/2024 3:37 PM EDT Plan of Treatment Upcoming Encounters Date Type Department Care Team (Late st Contact Info) Description 01/16/2025 3:45 PM EDT Office Visit Orthopedic Surgery - [place] [address] [phone] Jaime Guerrero, DPM [address] [phone] 07/20/2025 4:30 PM EDT Office Visit Adult Medicine [facility] [address] [place] [address] Ganga Carroll MD [address] [place] [address] Health Maintenance Due Date Last Done Comments Hepatitis B Vaccines (1 of 3 - 19+ 3-dose series) 1986 Pneumococcal Vaccine: 50+ Years (1 of 1 - PCV) 2017 Zoster Vaccines (1 of 2) 2017 HIV Screening 01/29/2022 COVID-19 Vaccine (2 - 2024-2 6 season) 2024 11/26/2020 Influenza Vaccine (#1) 2024 Hypertension/CHF/CAD Annual BMP Blood Test 07/14/2025 07/14/2024, 03/01/2024 Social Influencers of Health Screening 08/17/2025 08/17/2024 Colorectal Cancer Screening: Colonoscopy 01/16/2028 01/15/2018 Cholesterol Screening (Lipid Panel) 07/14/2029 07/14/2024, 03/01/2024 DTaP,Tdap,and Td Vaccines (3 - Td or Tdap) 01/17/2031 01/17/2021, 05/15/2010 Hepatitis C Screening Completed 01/19/2021 Depression Screening Completed 06/23/2024 HIB Vaccines Aged Out No longer eligi ble based on patient's age to complete this topic HPV Vaccines Aged Out No longer eligi ble based on patient's age to complete this topic Hepatitis A Vaccines Aged Out No long er eligible based on patient's age to complete this topic IPV Vaccines Aged Out No longer eligi ble based on patient's age to complete this topic MMR Vaccines Aged Out No longer eligi ble based on patient's age to complete this topic Meningococcal ACWY Vaccine Aged Out N o longer eligible based on patient's age to complete this topic Meningococcal B Vaccine Aged Out No l onger eligible based on patient's age to complete this topic RSV Immunization Patients Under 20 months Aged Out No longer eligible b ased on patient's age to complete this topic Varicella Vaccines Aged Out No longer eligible based on patient's age to complete this topic Procedures Procedure Name Priority Date/Time Associated Diagnosis Comments COMPREHENSIVE METABOLIC PANEL Routine 07/14/2024 8:34 AM EDT Coronary artery disease involving [place] coronary artery of [place] heart without angina pectoris LIPID PANEL WITH REFLEX TO DIRECT LDL Routine 07/14/2024 8:34 AM EDT Coronary artery disease involving [place] coronary artery of [place] heart without angina pectoris HEPATITIS C SCREENING Routine 01/19/2021 COLONOSCOPY Routine 01/15/2018 from Last 3 Months or Most Recently Relevant to Health Maintenance Results * Lipid panel with reflex to direct LDL (07/14/2024 8:34 AM EDT) Cholesterol 109 0 - 200 mg/dL LAB CHEMISTRY METHOD 07/14/2024 1:29 PM EDT [facility] Triglycerides 89 0 - 150 mg/dL LAB CHEMISTRY METHOD 07/14/2024 1:29 PM EDT [facility] HDL 40 >=40 mg/dL LAB CHEMISTRY METHOD 07/14/2024 1:29 PM EDT [facility] LDL Calculated 51 0 - 100 mg/dL LAB CHE[facility]STRY [facility]DL Cholesterol Elijah 17.8 mg/dL LAB CHEMISTRY METHOD 07/14/2024 1:29 PM EDT [facility] Non HDL Chol. (LDL+VLDL) 69 <145 mg/dL LAB CHEMISTRY METHOD 07/14/2024 1:29 PM EDT [facility] Chol/HDL Ratio 2.7 0.0 - 4.4 LAB CHEMISTRY METHOD 07/14/2024 1:29 PM [facility] Blood Venous blood specimen / Unknown Venipuncture / Unknown 07/14/2024 8:34 AM EDT 07/14/2024 8:34 AM EDT Shawn GUTIERREZ LAB BLOOD ORDERABLES Fi nal Result [facility] [address] [place] [address], * (ABNORMAL) Comprehensive metabolic panel (07/14/2024 8:34 AM EDT) Sodium 138 133 - 145 mmol/L LAB CHEMISTRY METHOD 07/14/2024 1:29 PM [facility] Potassium 4.1 3.5 - 5.5 mmol/L LAB CHEMISTRY METHOD 07/14/2024 1:29 PM [facility] Chloride 102 96 - 110 mmol/L LAB CHEMISTRY METHOD 07/14/2024 1:29 PM [facility] CO2 31 21 - 32 mmol/L LAB CHEMISTRY METHOD 07/14/2024 1:29 PM [facility] Anion Gap 5 3 - 11 LAB CHEMISTRY METHOD 07/14/2024 1:29 PM [facility] Glucose 114(H) 70 - 100 mg/dL LAB CHEMISTRY METHOD 07/14/2024 1:29 PM [facility] BUN 15 5 - 25 mg/dL LAB CHEMISTRY METHOD 07/14/2024 1:29 PM [facility] Creatinine 0.82 0.70 - 1.30 mg/dL LAB CHEMISTRY METHOD 07/14/2024 1:29 PM [facility] eGFR 102 >=60 mL/min/1. 73m2 LAB CHEMISTRY METHOD 07/14/2024 1:29 PM [facility] Comment:Calculation based on the Chronic Kidney Disease Epidemiology Collaboration (CKD-EPI) equation refit without adjustment for race. BUN/Creatinine Ratio 18.3 LAB CHEMISTRY METHOD 07/14/2024 1:29 PM [facility] Calcium 9.1 8.5 - 10.5 mg/dL LAB CHEMISTRY METHOD 07/14/2024 1:29 PM EDT [facility] AST (SGOT) 30 10 - 42 unit/L LAB CHEMISTRY METHOD 07/14/2024 1:29 PM EDT [facility] ALT (SGPT) 59 10 - 60 unit/L LAB CHEMISTRY METHOD 07/14/2024 1:29 PM EDT [facility] Alkaline Phosphatase 66 42 - 121 unit/L LAB CHEMISTRY METHOD 07/14/2024 1:29 PM EDT [facility] Total Protein 7.2 6.0 - 8.0 g/dL LAB CHEMISTRY METHOD 07/14/2024 1:29 PM EDT [facility] Albumin 4.1 3.2 - 5.0 g/dL LAB CHEMISTRY METHOD 07/14/2024 1:29 PM [facility] Total Bilirubin 1.0 0.0 - 1.4 mg/dL LAB CHEMISTRY METHOD 07/14/2024 1:29 PM EDT [facility] Blood Venous blood specimen / Unknown Venipuncture / Unknown 07/14/2024 8:34 AM EDT 07/14/2024 8:34 AM EDT Shawn GUTIERREZ LAB BLOOD ORDERABLES Fi nal Result [facility] [address] [place] [address], * Hepatitis C Screening (01/19/2021) Hepatitis C Screening abstracted Historical Provider HEALTH MAINTENANCE Final Result * Colonoscopy (01/15/2018) Colonoscopy abstracted, no interpretation Anatomical Region Laterality Modality Other Historical Provider HEALTH MAINTENANCE Final Result from Last 3 Months or Most Recently Relevant to Health Maintenance Insurance [employer] Care Teams Deburr Technician Relationship Specialty Start Date End Date Ganga Carroll MD [address] [place] [phone] PCP - General Internal Medicine 03/04/24
--- OUTSIDE RECORDS SUMMARY | 2025-01-15 15:33 | XMS_ITS | Data Portability ---
Author Organization [place] - [facility], Allergy Address [address] [address] Care Team Providers Care Plunket Nurse Name Role Phone CHENCHO GILES Primary Care Provider [phone] Assessment No assessment recorded. Plan of Treatment Reminders Order Date Submit Date Provider Last Modified By Organization Details Last Modified Time Details Appointments None recorded. Lab None recorded. Referral None recorded. Procedures None recorded. Surgeries None recorded. Imaging CT, maxillofaci al, w/wo contrast - diplopia and ?fungal sinusitis with contrast 2024 025 [email or web address] [facility], [address] [facility], [facility], [place], [address], 5 09:01:18 Medication Orders Ciprodex 0.3 %-0.1 % ear drops,suspe nsion 2024 025 [facility], [address] [place] [address], [id number], 5 15:44:39 amoxicillin 875 mg-potassiu m clavulanate 125 mg tablet 2024 025 [facility], [address] [place] [address], [id number], 5 15:44:40 Patient TargetsNo targets recorded. Patient Instructions Encounter Date Encounter Id Patient Instructions Last Modified By Organization Details Last Modified Time 05/10/2024 [id number] Patient with history of sleep apnea, nasal [...] Name and Address Organization Details Recorded Time Polyp of nasal cavity [id number] Active 2015 Polyp of nasal cavity; Note: Date Diagnosed : 06/19/2015 11:20 AM (J33.0) Not Available [facility] 4 02:31:44 Deviated nasal septum 270352722 Active 2015 Nasal septal deviation ; CMS Risk: moderate risk Dev iated nasal septum; Note: Date Diagnosed : 06/19/2015 11:20 AM (J34.2) ; Start Date : 6 Not Available [facility] 4 02:31:38 Postopera tive follow-up visit Active 2015 Post op; Note: Date Diagnosed : 07/23/2015 10:37 AM (V67.00) Not Available [facility] 4 02:31:47 Chronic sinusitis 14879665 Active 2015 Chronic sinusitis ; Note: Date Diagnosed : 07/23/2015 10:37 AM (473.9) Sinusit is (chronic) involving more than one sinus but not pansinusi tis; Note: Date Diagnosed : 06/19/2015 11:56 AM (J32.8) ; Start Date : 6 Not Available [facility] 4 02:31:30 Hypertrop hy of nasal turbinate s 20591547 Active 2015 Nasal turbinate hypertrop hy; Location: bilateral CMS Risk: low risk Hyp ertrophy of nasal turbinate s; Note: Date Diagnosed : 07/19/2015 1:25 PM (J34.3) ; Start Date : 6 Not Available [facility] 4 02:31:28 Chronic maxillary sinusitis 10391678 Active 2015 Chronic maxillary sinusitis ; Note: Date Diagnosed : 08/01/2015 4:54 PM (J32.0) Not Available [facility] 4 02:31:46 Superfici al mycosis 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 Active 2015 Other specified superfici al mycoses; Note: Date Diagnosed : 08/01/2015 4:55 PM (B36.8) Not Available [facility] 4 02:31:37 Allergic rhinitis 94734732 Active 2015 Other allergic rhinitis; Note: Date Diagnosed : 08/29/2015 4:01 PM (J30.89) Not Available [facility] 4 02:31:30 Chronic rhinitis 02718903 Active 2015 Chronic rhinitis; Note: Date Diagnosed : 12/07/2015 10:33 AM (J31.0) Not Available [facility] 4 02:31:31 Dyspnea 816721356 Active 2015 Shortness of breath; Note: Date Diagnosed : 12/07/2015 10:33 AM (R06.02) Not Available [facility] 4 02:31:28 Obstructi ve sleep apnea syndrome 25672101 Active 2019 Obstructi ve sleep apnea (adult) (pediatri c); Note: Date Diagnosed : 05/13/2019 3:33 PM (G47.33) Not Available [facility] 4 02:31:40 Nasal congestio n 72132770 Active 2019 Nasal congestio n; Note: Date Diagnosed : 05/13/2019 3:33 PM (R09.81) Not Available [facility] 4 02:31:26 Acute serous otitis media of bilateral ears 45282508582 53325 Active 2019 Acute serous otitis media, bilateral ; Note: Date Diagnosed : 05/13/2019 3:38 PM (H65.03) Not Available [facility] 4 02:31:35 Acute suppurati ve otitis media 522491195 Active 2024 CLAUDE HERNÁNDEZ MD [address] [facility],[place] [address], [place], [address] , [facility] 5 15:44:05 Diplopia 77204740 Active 2024 CLAUDE HERNÁNDEZ MD [address] [facility],[place] [address], [place], [address] , [facility] 5 15:46:03 Problem Notes None recorded. Procedures Surgical History Date Name Laterality Status Provider Name and Address Organization Details Recorded Time JMSNasal/Sinus Endoscopy-PRIOR surgical cavities completed CLAUDE LOUIS MD [address] [place] [address],[place] [address], [place], [address], [facility] 05/10/2024 15:41:25 functional endoscopic sinus surgery completed CLAUDE LOUIS MD [address] [place] [address],[place] [address], [place], [address], [facility] 05/10/2024 15:35:13 Imaging Results None recorded. Procedure Notes None recorded. Medical Equipment None Reported. Medications Name Sig Start Date Stop Date Status Note LastModified by Organization Details LastModified Time losartan 50 mg tablet TAKE 1 TABLET BY MOUTH ONCE DAILY active Not Available Not Available No t Available dicloxaci llin 500 mg capsule 1 capsule by mouth 2015 active Medicati on ID: [id number] D uration Value: 10 Prescri bed By [...] by mouth 2015 active Medicati on ID: [id number] D uration Value: 5 Prescri bed By Name: Reg Sorenson nd Name: hydrocod one-acet aminophe n Send Method: E-Prescr ibed Sub s Allowed: subs OK Medic ationGen ericName : hydrocod one-acet aminophe n Not Available Not Available Not Available prednison e 20 mg tablet 2019 active Medicati on ID: [id number] P rescribe d By Name: Reg Sorenson [...] a day 2019 active Medicati on ID: [id number] D uration Value: 10 Prescri bed By Name: Reg Sorenson nd Name: doxycycl ine monohydr ate Send Method: E-Prescr ibed Sub s Allowed: subs OK Medic ationGen ericName : doxycycl ine monohydr ate Not Available Not Available Not Available Ponaris nasal solution 1 ml into both nostrils 2015 active Medicati on ID: [id number] D uration Value: 30 Prescri bed By Name: Reg Sorenson nd Name: Ponaris Send Method: E-Prescr ibed Sub s Allowed: subs OK Speci al Instruct ion: use 1/2 dropper in each nostril BID... M edicatio nGeneric Name: Ponaris Not Available Not Available Not Available lisinopri l 10 mg tablet active Medicati on ID: [id number] D uration Value: 30 Brand Name: lisinopr il Send Method: E-Prescr ibed Sub s Allowed: subs OK Medic ationGen ericName : lisinopr il Not Available Not Available Not Available hydrochlo rothiazid e 25 mg tablet 05/13 completed Medicati on ID: [id number] D uration Value: 30 Brand Name: hydrochl orothiaz adam Send Method: E-Prescr ibed Sub s Allowed: subs OK Medic ationGen ericName : hydrochl orothiaz adam Not Available Not Available Not Available diclofena c sodium 50 mg tablet,de layed release TAKE 1 TABLET BY MOUTH TWICE DAILY NEEDED FOR PAIN active Not Available Not Available No t Available fluticaso ne propionat e 50 mcg/actua tion nasal spray,lito pension 2 spray into both nostrils 2016 active Medicati on ID: [id number] D uration Value: 30 Prescri bed By Name: Claude hopkins M.D. Bra nd Name: fluticas one Send Method: E-Prescr ibed Sub s Allowed: subs OK Medic ationGen ericName : fluticas one Not Available Not Available Not Available amoxicill in 875 mg-potass ium clavulana te 125 mg tablet Take 1 tablet every 12 hours by oral route. active Not Available Not Available No t Available cyclobenz aprine 5 mg tablet TAKE 1 TABLET BY MOUTH AT BEDTIME NEEDED FOR MUSCLE SPASM active Not Available Not Available No t Available Fish Oil 120 mg-180 mg capsule 2015 active Medicati on ID: [id number] B rand Name: Fish Oil Send Method: E-Prescr ibed Sub s Allowed: subs OK Medic ationGen ericName : Fish Oil Not Available Not Available Not Available ciproflox acin 0.3 %-dexamet hasone 0.1 % ear drops,lito pension INSTILL 4 DROPS INTO AFFECTED EAR(S) BY OTIC ROUTE 2 TIMES PER DAY FOR 7 DAYS active Not Available Not Available No t Available omeprazol e 20 mg tablet,de layed release 2015 active Medicati on ID: [id number] B rand Name: omeprazo le Send Method: E-Prescr ibed Sub s Allowed: subs OK Speci al Instruct ion: Take 1 tablet by mouth every day before breakfas t Medica tionGene ricName: omeprazo le Not Available Not Available Not Available cholecalc iferol (vitamin D3) 125 mcg/mL (5,000 unit/mL) oral drops 2017 active Medicati on ID: [id number] B rand Name: cholecal ciferol (vitamin D3) Send Method: E-Prescr ibed Sub s Allowed: subs OK Medic ationGen ericName : cholecal ciferol (vitamin D3) Not Available Not Available Not Available EpiPen 2-Sathish 0.3 mg/0.3 mL injection , auto-inje ctor 1 pen injector intramus cularly 2015 active Medicati on ID: [id number] D uration Value: 180 Prescri bed By Name: Reg Sorenson nd Name: EpiPen 2-Sathish Se nd Method: E-Prescr ibed Sub s Allowed: subs OK Medic ationGen ericName : EpiPen 2-Sathish Not Available Not Available Not Available Vitals Date Recorded Body height Body mass index (BMI) Body weight Provider Name and Address Organization Details Last Updated DateTime 05/10/2024 167.64 cm 46.3 kg/m2 160788.01 g Gabriel Gonzalez [place] [facility] 05/10/2024 15:22:23 Social History None recorded. Functional Status None recorded. Mental Status None recorded. Family History Nothing Reported. Medical History Condition Response Allergies/Hayfever Y Nasal or Sinus Problems Y Sleep Disorder Y High Cholesterol Y Hypertension Y Nasal polyps Y Past Encounters Encounter ID Performer Location Encounter Start Date Encounter Closed Date Diagnosis/Indication Diagnosis SNOMED-CT Code Diagnosis ICD10 Code Diagnosis IMO Codes Diagnosis Note [id number] CLAUDE HERNÁNDEZ MD [facility] [address] [address] 05/10/2024 15:05:27 05/10/2024 15:47:24 Chronic sinusitis 06138149 J32.9 Acute supp urative otitis media 597239445 H66.009 Diplopia 36631285 H53.2 Health Concerns Section Related Observation LastModified by Organization Detai ls LastModified Time None Recorded Concern Status LastModified by Organization Details LastModified Time None Recorded Advance Directives Directive None Recorded Payers Insurance Date Sequence Insurance Name Policy Number Policy Carr Covered Member ID Carr Member ID Guarantor Name 05/10/2024 1 [facility] - HEALTH NET PLAN (MEDICAID HMO) [id number] Delfin Stratton [id number] Delfin Stratton 02/23/2024 1 [facility] - DOS ON OR AFTER 2022 - MEDICARE ADVANTAGE [place]ARE RE[place]ACEMENT/ADV ANTAGE - PPO) Delfin Stratton [id number] Delfin Stratton 02/23/2024 1 [facility] - TOGETHER (MEDICAID HMO) Delfin Stratton [id number] Delfin Stratton 02/24/2024 1 [facility] - DOS ON OR AFTER 2022 - MEDICARE [place]AGE [place]/ADV ANTAGE - PPO) [id number] Delfin Stratton [id number] Delfin Stratton 05/10/2024 1 [facility] (MEDI-MANDEEP HMO) Delfin Stratton [id number] Delfin Stratton Notes Date Note Type [...] pain behind left eye CLAUDE LOUIS MD [address] [place] [address], [place], [address], [facility] - [facility] 05/10/2024 15:46:19
[2025-01-15] MEDS: Fluorescein Sodium STRIP 1 STRIP EYE-RIGHT (18:38)
[2025-01-15] MEDS: Tetracaine HCl/PF 0.5% Oph Sol 4 ML DROPS 1 DROP EYE-RIGHT (18:38)
[2025-01-15 19:10] VITALS: BP 147/78; PULSE 83; RESP 16; TEMP 36.9; O2SAT 96
== END 2025-01-15 19:11 | disposition home or self-care (01) ==
PROVIDERS: Emergency Provider Emergency Medicine Emergency Medical Services; PCP Internal Medicine
DX: H43.393 Other vitreous opacities, bilateral (principal); H53.8 Other visual disturbances; I10 Essential (primary) hypertension
CPT/HCPCS: 99283; 99284